=== PATIENT | female | born 1930 | race Caucasian/White ===

== ENCOUNTER 2021-06-14 12:15 | Emergency (ER) | payer MEDICARE, OTHER ==
[~2021-06-14] VITALS: Ht 167.6 cm; Wt 56.7 kg
--- NOTE | 2021-06-14 13:09 | PHYS DOC ---
Adult General Chief Complaint Chief Complaint: RAPID HEART RATE HPI HPI Patient is an 89-year-old female with a past medical history of hypertension who presents to the emergency department with a chief complaint of fatigue and advised to come to the emergency department by the retirement staff as she had an irregular heart rate. Patient states over the past several days she has felt more fatigued than usual but denies any recent traumas, travels, illnesses, fevers, chest pain, shortness of breath, abdominal pain, nausea, vomiting. Denies any lightheadedness or syncope. Denies any numbness/weakness/tingling. Denies any trouble sitting, standing or walking. States she is taking all of her medications as prescribed. States she has been eating and drinking normally. States he is making urine and stool normally for her with no blood in either. Review of Systems Review of Systems Review of systems otherwise unremarkable except noted in HPI Physical Exam Physical Exam Constitutional: Well developed, well nourished, no acute distress, non-toxic appearance. [] HENT: Normocephalic, atraumatic, bilateral external ears normal, oropharynx moist, no oral exudates, nose normal. [] Eyes: PERRLA, EOMI, conjunctiva normal, no discharge. [] Neck: Normal range of motion, no tenderness, supple, no stridor. [] Cardiovascular: Regular rate irregular rhythm Lungs & Thorax: Bilateral breath sounds clear to auscultation [] Abdomen: soft, no tenderness, no masses, no pulsatile masses. [] Skin: Warm, dry, no erythema, no rash. [] Back: No tenderness, no CVA tenderness. [] Extremities: No tenderness, no cyanosis, no clubbing, ROM intact, no edema. [] Neurologic: Alert and oriented X 3, normal motor function, normal sensory function, able to sit, stand and walk without issue, no focal deficits noted. [] Psychologic: Affect normal, judgement normal, mood normal. [] EKG EKG [] Radiology/Procedures Radiology/Procedures [] Heart Score C/O Chest Pain: No Risk Factors: Risk Factors: DM, Current or recent (<one month) smoker, HTN, HLP, family history of CAD, obesity. Risk Scores: Risk Factors: DM, Current or recent (<one month) smoker, HTN, HLP, family history of CAD, obesity. Course & Med Decision Making Course & Med Decision Making Patient is a 89-year-old female with a past medical history of hypertension who presents from her retirement for chief complaint of fatigue and irregular heart rate noticed by medical staff at her facility Vital signs notable for A. fib. Physical exam noted above. EKG Chads Vascor of 4 showing a possible stroke risk of 4.8% a year and a candidate for anticoagulation. Has bled score high at 3 with a 5.8% chance of bleed and recommends considering an alternative. Discussed patient with hospitalist. Started on 81 mg aspirin. Laboratory analysis not concerning. Urinalysis notable for nitrite positive UTI. Started on nitrofurantoin in the ED. Discussed symptomatic treatment at home. Advised to continue 81 mg aspirin daily until follow-up with primary care physician. Advised to call first thing Tuesday and set up a follow-up appointment as soon as possible with PCP. Gave return precautions to the ED. Patient grateful, verbalized understanding and agreed with plan of discharge. [] Dragon Disclaimer Dragon Disclaimer This electronic medical record was generated, in whole or in part, using a voice recognition dictation system. Departure Departure: Impression: Primary Impression: UTI (urinary tract infection) Additional Impression: New onset a-fib Disposition: HOME / SELF CARE / HOMELESS Condition: STABLE Referrals: [facility]IC[facility] HOPPER (PCP) Patient Instructions: Atrial Fibrillation, Urinary Tract Infection Additional Instructions: Thank you for coming into the emergency department tonight and allowing us to take care of you. Please read the attached information carefully to go over things we discussed. Please begin a baby aspirin, 81 mg a day until you see your primary care physician and make a decision on whether you would like to continue that or not. Please follow-up immediately, Tuesday with your primary care physician to discuss your ED visit, the need to take aspirin for your new onset atrial fibrillation and set up a follow-up appointment as soon as possible. Please take your antibiotics for your urinary tract infection as prescribed and until gone. Please be sure to drink plenty of fluids. Please c ome back with new or concerning symptoms as we discussed. Scripts Nitrofurantoin Macrocrystal (NITROFURANTOIN) 100 Mg Capsule 1 CAP PO BID for UTI for 5 Days, #9 CAP Prov: TOD KHAN MD 06/14/21 Problem Qualifiers TOD KHAN MD Jun 14, 2021 13:09
[2021-06-14] MEDS ORDERED: ASPIRIN CHEWABLE 81 MG TABLET. PO ONE (13:15)
--- NOTE | 2021-06-14 13:35 | RAD ---
EXAMINATION: Chest radiograph. VIEWS: 1 COMPARISON: None INDICATION:89 years, Female, cardiac disease. FINDINGS: Normal cardiomediastinal silhouette. Tortuous thoracic aorta with atherosclerotic calcifications. Leslie vated right hemidiaphragm. No focal consolidation. No pleural effusion or pneumothorax. No acute osse ous process. Chronic deformity of bilateral ribs. Severe bilateral glenohumeral joints osteoarthritis . IMPRESSION: No acute cardiopulmonary process. Electronically signed by: Faye Cabello MD (06/14/2021 1:32 PM) [id number]
--- NOTE | 2021-06-14 13:42 | EKG ---
[address] [address] Test Date: 2021-06-14 Test Time: 13:31:36 Pat Name: BRANDON CUEVAS Department: Room: Gender: F Networking Technician: CHRIS : [id number] Requested By: TOD KHAN Order Number: [id number] Reading MD: Measurements Intervals [place] Rate: 84 P: [place]: QRS: -9 QRSD: 84 T: 28 QT: 390 QTc: 464 Interpretive Statements IRREGULAR RHYTHM, NO P-WAVE FOUND LEFTWARD AXIS R-S TRANSITION ZONE IN V LEADS DISPLACED TO THE LEFT LOW LIMB LEAD VOLTAGE QRS(T) CONTOUR ABNORMALITY CONSIDER ANTEROSEPTAL MYOCARDIAL DAMAGE POSSIBLY ABNORMAL ECG RI6.02 No previous ECG available for comparison
[2021-06-14 13:43] LABS: CALCIUM 8.6 mg/dL (8.5-10.1); CREATININE 0.6 mg/dL (0.6-1.0); GFR 94.1; POTASSIUM 4.5 mmol/L (3.5-5.1)
[2021-06-14 13:48] LABS: BASO % 1 % (0-3); EOS # 0.1 x10^3/uL (0.0-0.7); EOS % 1 % (0-3); HEMATOCRIT 41.4 % (36.0-47.0); HEMOGLOBIN 13.7 g/dL (12.0-15.5); LYMPH # 1.5 x10^3/uL (1.0-4.8); LYMPH % 30 % (24-48); MEAN CORPUSCULAR HEMOGLOBIN 32 pg (25-35); MEAN CORPUSCULAR HGB CONC 33 g/dL (31-37); MEAN CORPUSCULAR VOLUME 97 fL (79-100); MONO # 0.5 x10^3/uL (0.0-1.1); MONO % 11 % (0-9); NEUT # 2.8 x10^3uL (1.8-7.7); NEUT % 57 % (31-73); PLATELET COUNT 202 x10^3/uL (140-400); RED BLOOD COUNT 4.27 x10^6/uL (3.50-5.40); RED CELL DISTRIBUTION WIDTH 13.6 % (11.5-14.5); WHITE BLOOD COUNT 4.9 x10^3/uL (4.0-11.0)
[2021-06-14 13:49] LABS: ALBUMIN 3.8 g/dL (3.4-5.0); ALBUMIN/GLOBULIN RATIO 1.5 (1.0-1.7); MAGNESIUM 2.2 mg/dL (1.8-2.4); TOTAL BILIRUBIN 0.4 mg/dL (0.2-1.0); TOTAL PROTEIN 6.4 g/dL (6.4-8.2)
[2021-06-14 14:48] LABS: BACTERIA,URINE MOD /HPF (0-FEW); BILIRUBIN,URINE NEG (NEG); CLARITY,URINE CLEAR; COLOR,URINE YELLOW; GLUCOSE,URINE NEG (NEG); NITRITE,URINE POS (NEG); RBC,URINE OCC /HPF (0-2); SQUAMOUS EPITHELIAL CELL,UR MOD /LPF; UROBILINOGEN,URINE 0.2 mg/dL (0.2 mg/dL)
[2021-06-14] MEDS ORDERED: NITR100C PO (14:58)
[2021-06-14] MEDS ORDERED: NITROFURANTOIN MONOHYD/M-CRYST 100 MG CAPSULE. PO ONE (15:00)
[2021-06-14 15:05] VITALS: BP 122/70
== END 2021-06-14 15:07 | disposition home or self-care (01) ==
LOC: EDBD 12:15 → ER 12:15
DX: I48.91 Unspecified atrial fibrillation (principal); N39.0 Urinary tract infection, site not specified; I10 Essential (primary) hypertension
CPT/HCPCS: 36415; 71045; 80053; 81001; 83735; 84484; 85025; 85379; 87077; 87086; 87186; 93005; 99285